=== PATIENT | male | born 1980 | race Caucasian/White ===

== ENCOUNTER 2020-10-06 06:50 | Inpatient (IN) | payer SELFPAY ==
[2020-10-06 08:10] LABS: Hemoglobin 11.9 g/dL (14.0-18.0); Mean Corpuscular HGB CONC 30.9 g/dL (32.0-36.0); Mean Corpuscular Volume 90.7 fL (78.0-98.0); Mean Platelet Volume 7.4 fL (7.4-10.4); Platelet Count 599 thou/uL (130-400); RBC Distribution Width 15.1 % (11.5-14.5); Red Blood Cell (RBC) Count 4.24 mill/uL (4.70-6.10); White Blood Cell (WBC) Count 22.3 thou/uL (4.8-10.8)
[2020-10-06 08:19] LABS: ALT (SGPT) 13 U/L (8-55); AST (SGOT) 21 U/L (5-34); Albumin 3.7 g/dL (3.5-5.0); Alkaline Phosphatase 72 U/L (40-110); Anion Gap 22 mmol/L (10-20); BUN (Urea Nitrogen) 68 mg/dL (8.9-20.6); Bilirubin, Total 0.3 mg/dL (0.2-1.2); Calc. Creatinine Clearance 0 mL/min (70-130); Calcium 8.7 mg/dL (7.8-10.44); Carbon Dioxide 11 mmol/L (22-29); Chloride 112 mmol/L (98-107); Potassium 6.3 mmol/L (3.5-5.1); Protein, Total 7.7 g/dL (6.0-8.3); Sodium 139 mmol/L (136-145)
[2020-10-06 08:21] LABS: Glucose 56 mg/dL (70-105)
[2020-10-06] MEDS ORDERED: Albuterol 200 PUFF (6.7GM INHALER) ONE (08:30)
[2020-10-06] MEDS ORDERED: cefTRIAXone\\ROCEPHIN 2 GM VIAL ONE (08:33)
[2020-10-06] MEDS ORDERED: Dextrose 50% Abboject 50 ML SYRINGE ONE ×2 (08:33→12:20)
[2020-10-06] MEDS ORDERED: Azithromycin 500 MG VIAL ONE (08:33)
[2020-10-06 08:41] LABS: Band 20 % (5-11); Eosinophils 1 % (0-10); Lymphocytes 1 % (21-51); MDiff Complete? YES; Metamyelocyte 1 % (0-0); Monocytes 4 % (0-10); Neutrophil 64 % (42-75); Platelet Morphology Comment Appears Adequate; Polychromasia SLIGHT = 2-3 cells (100X) (0-2/hpf); Reactive Lymphocytes 9 % (0-10)
[2020-10-06] MEDS ORDERED: Lidocaine 1% w/Epinephrine 1:100K 20 ML VIAL ONE (08:59)
[2020-10-06] MEDS ORDERED: Calcium Gluc 4.6 MEQ/10 ML (100 MG/ML) ONE ×2 (09:05→13:04)
[2020-10-06] MEDS ORDERED: Aspirin Chewable 81 MG TAB ONE (09:09)
[2020-10-06] MEDS ORDERED: Acetaminophen 325 MG TAB PO PRN (09:23)
[2020-10-06] MEDS ORDERED: Bisacodyl 5 MG TAB PO PRN (09:23)
[2020-10-06] MEDS ORDERED: Sodium Bicarbonate 150 MEQ in Dextrose 5% in Water 1,000 ML IV SCH (10:30)
--- NOTE | 2020-10-06 10:40 | CON ---
DATE OF CONSULTATION: SUBJECTIVE: Mr. Khan is a 40-year-old male from [place], morbidly obese. He lives with his father. He is on disability because of weakness in his legs. He weighs over 350 pounds. He does ambulate with a walker, can transfer, but is very weak, has limited mobility. He has a history of hypertension, sleep apnea, noninsulin-dependent diabetes mellitus. He has been transferred to this facility for a COVID illness. He has a white count of 22,000, hemoglobin 11. Sodium 139, potassium 6.3, GFR 7, glucose 56, lactic acid 0.8, troponin 0.034. The patient does not have any knowledge of preexisting kidney disease. I have been asked to see him regarding placement of a hemodialysis catheter. He is morbidly obese and ER is required to retract his pannus. ALLERGIES: NONE. SOCIAL HISTORY: Tobacco, none. Alcohol, none. MEDICATION LIST AT HOME: 1. Oral hypoglycemics. 2. CPAP. 3. Antihypertensives. List not reconciled. PAST SURGICAL HISTORY: Laparoscopic cholecystectomy; infection of left thigh, status post drainage. PAST MEDICAL HISTORY: Noninsulin-dependent diabetes mellitus, hypertension, sleep apnea, chronic venous stasis disease, chronic leg edema, metabolic syndrome, morbid obesity due to excess calories, acute probably on chronic renal failure. FAMILY HISTORY: Diabetes, heart disease in his family. REVIEW OF SYSTEMS: Otherwise noncontributory. PHYSICAL EXAMINATION: VITAL SIGNS: Blood pressure 120/78, respiratory rate 20, heart rate 88. HEAD, EARS, EYES, NOSE, AND THROAT: Unremarkable. LUNGS: Rhonchi at base. CARDIAC: Regular rate and rhythm. ABDOMEN: Morbidly obese, large, dependent pannus. EXTREMITIES: Chronic venous stasis disease, ankle edema, chronic venous stasis dermatitis. No obvious ulcerations. LABORATORY DATA: As noted above. ASSESSMENT/PLAN: 1. Hyperkalemia, acute on chronic renal failure. Plan, groin dialysis catheter, save veins for dialysis access as he may need this up the road. 2. Metabolic syndrome. 3. Morbid obesity, excess calories. 4. Mur-eaqwriu-fvikujunu diabetes mellitus. 5. Hypertension. 6. Sleep apnea. 7. Limited mobility because of some medical problem in the past that is unclear. Job ID: [id number]
[2020-10-06 11:20] LABS: Actual Bicarbonate (HCO3a) 11.2 mEq/L (22-28); Base Excess (BEa) -17.9 mEq/L (-2.0 to +3.0); CO2 Tension 38.3 mmHg (35.0-45.0); Calcium, Ionized (arterial) 1.25 mmol/L (1.12-1.30); Carboxyhemoglobin (COHb) 0.8 gm% (0.0-3.0); Hemoglobin (Hb) 11.9 g/dL (14.0-18.0); O2 Tension (PaO2), arterial 64.9 mmHg (80.0-100.0)
[2020-10-06 11:30] LABS: ALV-art Gradient 115.385 mmHg (0-20); Puncture Site RRA; pH, Arterial 7.08 (7.35-7.45)
--- NOTE | 2020-10-06 11:45 | OP ---
DATE OF PROCEDURE: 10/06/2020 PREOPERATIVE DIAGNOSES: Morbid obesity; metabolic syndrome; acute on chronic renal failure; hyperkalemia; large pannus, more than 350 pounds; mvt-tiydkqq-qbzymvoql diabetes mellitus; hypertension; sleep apnea; chronic venous stasis disease, in need of acute dialysis access. POSTOPERATIVE DIAGNOSES: Morbid obesity; metabolic syndrome; acute on chronic renal failure; hyperkalemia; large pannus, more than 350 pounds; spc-dtztauj-ytvivzofl diabetes mellitus; hypertension; sleep apnea; chronic venous stasis disease, in need of acute dialysis access. PROCEDURE PERFORMED: Failed attempt at right groin femoral vein dialysis catheter, successful left groin femoral vein dialysis catheter, Trialysis. ANESTHESIA: 1% Xylocaine. DESCRIPTION OF PROCEDURE: With the patient at bedside, right groin was prepared with ChloraPrep and draped in routine fashion. Local anesthetic was infiltrated in the skin and subcutaneous tissue. After multiple attempts at placement of right femoral vein catheter, it was finally abandoned. I could cannulate the catheter, but the J-wire would not thread. Left groin was then prepared with ChloraPrep and draped in routine fashion. Nurse ER retracted his large pannus cephalad. Groin prepared again with ChloraPrep. Local anesthetic was infiltrated in the skin and subcutaneous tissue. Femoral vein after multiple attempts was finally cannulated. J-wire threaded. Trocar, catheter removed. Seldinger technique used to place a Trialysis catheter using the medium and then intermediate dilators then placing in the catheter, securing the catheter with suture of 3-0 nylon. Sterile dressing applied. Each port aspirated of blood, flushed with heparinized saline solution. Patient tolerated the procedure well. Note, please avoid PICC lines and midlines and save his arms for future dialysis access as he most likely will need permanent dialysis access once he has recovered from his COVID illness. Job ID: [id number]
[2020-10-06] MEDS ORDERED: Dextrose 50% Abboject 50 ML SYRINGE SLOW IVP SCH (12:00)
[2020-10-06] MEDS ORDERED: Calcium Gluconate 4.6 MEQ in Sodium Chloride 0.9% 100 ML IVPB SCH (12:00)
[2020-10-06] MEDS ORDERED: Insulin Regular 300 UNITS/3 ML VIAL IVP SCH (12:00)
[2020-10-06] MEDS ORDERED: Albuterol Sulfate 2.5 mg/3 ml Neb NEB SCH (12:15)
[2020-10-06] MEDS ORDERED: Insulin Regular 300 UNITS/3 ML VIAL ONE (12:44)
--- NOTE | 2020-10-06 12:52 | CON ---
DATE OF CONSULTATION: 10/06/2020 SERVICE: Nephrology. REASON FOR CONSULTATION: Hyperkalemia and acute renal failure. HISTORY OF PRESENT ILLNESS: A 40-year-old morbidly obese male with known history of diabetes mellitus, hypertension, and obstructive sleep apnea on CPAP, admitted on transfer from [facility] for further treatment of COVID infection and respiratory failure with hypoxia. The patient reportedly presented due to worsening cough and shortness of breath and was found to have hyperkalemia and metabolic acidosis. The patient is not a known chronic kidney disease patient. Denied prior knowledge of kidney problems. He reported being on potassium supplementation as well as lisinopril. He denied nausea or vomiting, but admitted to recent development of loose stools. Of note, this patient is a poor historian. Also the medical record from the transferring hospital could not be traced at this point. PAST MEDICAL HISTORY: 1. Type 2 diabetes mellitus. 2. Hypertension. 3. Chronic leg edema. 4. Obstructive sleep apnea, on CPAP. 5. Morbid obesity. PAST SURGICAL HISTORY: Laparoscopic cholecystectomy. FAMILY HISTORY: Significant for hypertension, heart disease, and chronic kidney disease. The patient reported that mother had CKD requiring hemodialysis prior to her . SOCIAL HISTORY: Lives alone. Denied alcohol or recreational drug use or tobacco. ALLERGIES: NONE. PRIOR TO HOSPITAL MEDICATIONS: The patient was able to tell me he is on the following medications: 1. Metformin. 2. Lisinopril. 3. Potassium. 4. Lasix, but was unable to tell me the doses. REVIEW OF SYSTEMS: A 12-point review of system performed was negative other than pertinent positives and negatives included in the history of present illness. PHYSICAL EXAMINATION: VITAL SIGNS: Blood pressure 126/74, pulse 92, respiratory rate 22, SpO2 of 93% on 3 L nasal cannula, temperature is 98.1. On presentation to the hospital, however, initial blood pressure was 92/37 with pulse of 84. However, the low blood pressure may be related to use of inappropriate cough. GENERAL: Morbidly obese male, in some respiratory distress. Afebrile. Anicteric. Acyanotic. HEENT: Normocephalic, atraumatic. Oral mucosa is moist. NECK: Supple, symmetrical with no obvious JVD. CARDIOVASCULAR: Regular rhythm and rate with normal heart sounds 1 and 2. RESPIRATORY: Fair air entry bilaterally with some transmitted breath sounds. No rhonchi were appreciated. Work of breathing is mildly increased. GI: Morbidly obese with massive pannus. Nontender with normal bowel sounds. EXTREMITIES: Chronic right lower extremity edema with chronic venous stasis changes as well as lymphedematous changes noted. No obvious erythema was appreciated. Other extremities are grossly normal, atraumatic with no edema. HYDROPONICS GROWER: Conscious, alert and oriented x3 with appropriate mental status. Cranial nerves 2 through 12 are grossly intact. The patient moves all extremities. DIAGNOSTIC DATA: CBC performed here showed WBC count of 22.3, hemoglobin of 11.9, MCV of 90.7, and platelet of 599. Blood gas performed here showed pH of 7.08, pCO2 of 38.3, pO2 of 64.9, ionized calcium of 1.25. CMP showed sodium 139, potassium 6.3, chloride 112, CO2 of 11, BUN 68, creatinine 8.81, glucose 56, calcium 8.7, magnesium 2.0, total bilirubin was 0.3, AST 21, ALT 13, alkaline phosphatase 72, total protein 7.7, albumin 3.7. Initial cardiac markers showed CK-MB of 5.0 and troponin of 0.034. Initial lactic acid is 0.8. Of note, baseline numbers are unknown and lab from the transferring physician is not available at this point. EKG showed normal sinus rhythm with no ectopics or ST or T-wave changes. ASSESSMENT: 1. Acute renal failure: Most likely due to hemodynamic factors related to volume depletion from poor intake and increased losses related to diuretic and diarrhea as well as effect of RAAS karina and cytokine mediated injury related to sepsis and coronavirus pneumonia. 2. Hyperkalemia: Due to acute kidney injury as well as use of lisinopril and potassium supplementation as well as marked metabolic acidosis. 3. Severe metabolic acidosis with pH of 7.08: Due to acute renal failure. 4. Sepsis due to coronavirus disease infection. 5. Morbid obesity. 6. Obstructive sleep apnea, on CPAP. 7. Hypertension: The patient's blood pressures is well controlled. Initially was soft actually which has improved at this time. PLAN: 1. We will treat hyperkalemia medically with insulin/dextrose as well as albuterol, Kayexalate and calcium gluconate and sodium bicarbonate infusion. We will recheck BMP at 15 hours and if potassium is still elevated, we will then proceed with hemodialysis. 2. We will get urine electrolytes. 3. We will also get renal ultrasound to rule out obstructive uropathy. 4. We will optimize hemodynamics and avoid hypertension. Further treatment to follow depending on hospital course. General Surgery consult has been requested and the patient currently have a Trialysis catheter in case hemodialysis will be indicated. 5. Many times for involving us in the care of this patient. We will follow along with you. The patient is critically ill with guarded prognosis. Critical care time was 38 minutes. Job ID: [id number] MTDD
--- NOTE | 2020-10-06 13:59 | PDOC.HHP ---
Hospitalist HPI - History of Present Illness Generalized weakness History of Present Illness: Patient is a pleasant 34-year-old gentleman who was seen in the emergency room following transfer from emergency room in [place]. He reports having generalized weakness for 1 week. He also reports worsening shortness of breath and cough. Reports diarrhea. He denies fevers or chills. He denies nausea or vomiting. In the emergency room at [place], he was found to have hyperkalemia, acute kidney injury and a positive COVID-19 test. He was subsequently transferred to our facility for further management. ED Course: BP: 92/37, MAP: 55, Pulse: 84, Resp: 20, Temp: 97.4 (Oral), O2 sat: 92 on (3L Oxygen), Time: 10/06/2020 07:07. Hospitalist ROS - Review of Systems Constitutional: reports: weakness, malaise. denies: fever, chills, sweats Respiratory: reports: cough, dry, shortness of breath Cardiovascular: denies: chest pain, palpitations, orthopnea, paroxysmal noc. dyspnea, edema, light headedness Gastrointestinal: reports: diarrhea. denies: nausea, vomiting, abdominal pain, constipation, melena, hematochezia Genitourinary: denies: dysuria, frequency, incontinence, hematuria, retention All other systems reviewed; all pertinent +/- noted in HPI/Subj - Medication Medications: Active Medications Generic Name Dose Route Start Last Admin Trade Name Freq PRN Reason Stop Dose Admin Albuterol Sulfate 5 mg 10/06/20 12:15 10/06/20 13:26 Albuterol Sulfate 2.5 Mg/3 Ml Neb NEB 10/06/20 14:15 Not Given NOW JERRY Dextrose/Water 25 gm 10/06/20 12:00 10/06/20 12:44 Dextrose 50% Abboject 50 Ml Syringe SLOW IVP 10/06/20 14:00 25 gm NOW JERRY Administration Calcium Gluconate 4.6 meq/ 110 mls @ 200 mls/hr 10/06/20 12:00 10/06/20 13:14 Sodium Chloride IVPB 10/06/20 14:00 110 mls NOW JERRY Administration Insulin Human Regular 10 units 10/06/20 12:00 10/06/20 12:57 Insulin Regular 300 Units/3 Ml Vial IVP 10/06/20 14:00 10 unit NOW JERRY Administration Sodium Polystyrene Sulfonate 30 gm 10/06/20 12:00 10/06/20 12:45 Sodium Polystyrene Sulfonate 15 Gm/60 Ml Bot PO 10/06/20 14:00 30 gm NOW JERRY Administration Allergies: No known drug allergies. Current medications: These need to be clarified, but appears to include Metformin, lisinopril, potassium and furosemide. Hospitalist History - Past Medical History Other Medical History: Past medical history: Significant for diabetes mellitus type 2, hypertension, chronic lower extremity edema, obstructive sleep apnea syndrome on CPAP therapy and morbid obesity. Surgical history: Laparoscopic cholecystectomy Family history: Significant for hypertension, heart disease and chronic kidney disease. Social history: Patient denies tobacco use, alcohol use or recreational drug use. - Exam General - other findings: Morbid obesity Eye: anicteric sclera ENT: normocephalic atraumatic, no oropharyngeal lesions Neck: supple, symmetric, no thyromegaly, no lymphadenopathy Heart: RRR, no gallops, no rubs, normal peripheral pulses Respiratory: CTAB, no wheezes, no rales, no ronchi Gastrointestinal: soft, non-tender, normal bowel sounds, distended Skin: no rashes Psychiatric: normal affect, normal behavior, A&O x 3 Hospitalist Results - Labs Result Diagrams: 10/06/20 07:48 10/06/20 07:48 Lab results: WBC 22.3 thou/uL (4.8-10.8) H 10/06/20 07:48 Hgb 11.9 g/dL (14.0-18.0) L 10/06/20 07:48 Hct 38.4 % (42.0-52.0) L 10/06/20 07:48 MCV 90.7 fL (78.0-98.0) 10/06/20 07:48 Plt Count 599 thou/uL (130-400) H 10/06/20 07:48 Band Neuts % (Manual) 20 % (5-11) H 10/06/20 07:48 ABG pH 7.08 (7.35-7.45) L* 10/06/20 11:15 ABG pCO2 38.3 mmHg (35.0-45.0) 10/06/20 11:15 ABG pO2 64.9 mmHg (80.0-100.0) L 10/06/20 11:15 Sodium 139 mmol/L (136-145) 10/06/20 07:48 Potassium 6.3 mmol/L (3.5-5.1) H 10/06/20 07:48 Chloride 112 mmol/L (98-107) H 10/06/20 07:48 Carbon Dioxide 11 mmol/L (22-29) L 10/06/20 07:48 BUN 68 mg/dL (8.9-20.6) H 10/06/20 07:48 Creatinine 8.81 mg/dL (0.7-1.3) H 10/06/20 07:48 Glucose 56 mg/dL (70-105) L* 10/06/20 07:48 Lactic Acid 0.8 mmol/L (0.5-2.2) 10/06/20 07:48 Calcium 8.7 mg/dL (7.8-10.44) 10/06/20 07:48 Total Bilirubin 0.3 mg/dL (0.2-1.2) 10/06/20 07:48 AST 21 U/L (5-34) 10/06/20 07:48 ALT 13 U/L (8-55) 10/06/20 07:48 Alkaline Phosphatase 72 U/L (40-110) 10/06/20 07:48 CK-MB (CK-2) 5.0 ng/mL (0-6.6) 10/06/20 07:48 Troponin I 0.030 ng/mL (< 0.028) H 10/06/20 10:58 Serum Total Protein 7.7 g/dL (6.0-8.3) 10/06/20 07:48 Albumin 3.7 g/dL (3.5-5.0) 10/06/20 07:48 - EKG Interpretation EKG: EKG by my review shows normal sinus rhythm, no ST changes to suggest an acute coronary syndrome. - Radiology Interpretation Chest x-ray Additional Comment: Chest x-ray by my review shows multifocal pneumonia. Hospitalist H&P A/P - Problem (1) Acute kidney injury Code(s): N17.9 - ACUTE KIDNEY FAILURE, UNSPECIFIED Status: Acute (2) Metabolic acidosis Code(s): E87.2 - ACIDOSIS Status: Acute (3) Hyperkalemia Code(s): E87.5 - HYPERKALEMIA Status: Acute (4) Hypotension Status: Acute (5) Diabetes mellitus, type II Status: Chronic - Plan Plan: General surgery service consulted for dialysis catheter. Bicarbonate drip. Empiric antibiotics, ceftriaxone and azithromycin. Emergent dialysis for acute kidney injury and hyperkalemia Vasopressors if needed. Check urine studies and blood culture. Dexamethasone hypoxia as documented. Vitamin C, vitamin D and zinc. Many thanks for allowing me to participate in your patient's care. Please feel free to contact me with any questions or concerns. Level of risk: High Level of complexity: High Estimated length of stay in the hospital: Greater than 2 midnights. Primary CARE provider: Dr. Varghese Rivas
[2020-10-06] MEDS ORDERED: Dextrose 5% in Water 1,000 ML IV PRN (14:13)
[2020-10-06] MEDS ORDERED: Dextrose 50% Abboject 50 ML SYRINGE SLOW IVP PRN (14:13)
[2020-10-06] MEDS ORDERED: Zinc Sulfate 220 MG CAP PO SCH (14:15)
[2020-10-06] MEDS ORDERED: Ascorbic Acid 500 mg Chewable Tablet PO SCH (14:15)
[2020-10-06 14:17] LABS: Anion Gap 23 mmol/L (10-20); BUN (Urea Nitrogen) 67 mg/dL (8.9-20.6); Calc. Creatinine Clearance 0 mL/min (70-130); Calcium 8.7 mg/dL (7.8-10.44); Carbon Dioxide 10 mmol/L (22-29); Chloride 110 mmol/L (98-107); Glucose 245 mg/dL (70-105); Potassium 6.2 mmol/L (3.5-5.1); Sodium 137 mmol/L (136-145); Troponin I 0.027 ng/mL (< 0.028)
[2020-10-06] MEDS ORDERED: Dexamethasone 10 MG/ML VIAL ONE (15:20)
[2020-10-06] MEDS ORDERED: Heparin 10,000 UNITS/ 10 ML VIAL ONE (15:20)
[2020-10-06] MEDS: Dexamethasone 4 mg/ml Vial SLOW IVP SCH (15:35)
--- NOTE | 2020-10-06 16:33 | ULT ---
EXAM: BILATERAL RENAL ULTRASOUND COMPLETE: 10/06/20 HISTORY: Acute kidney injury. FINDINGS: Right kidney measures 10.2 x 5.6 x 5.9 cm. Left kidney measures 12.0 x 5 x 4.8 cm. Exam is very severely limited because of body habitus. No evidence for renal hydronephrosis. Urinary bladder appears unremarkable. IMPRESSION: Severely limited study because of body habits. No overt hydronephrosis. POS: OFF
--- NOTE | 2020-10-06 17:55 | CON ---
DATE OF CONSULTATION: 10/06/2020 HISTORY OF PRESENT ILLNESS: Shaan Khan is a 40-year-old male. I am told he is home bound. He was transferred from [place], [place] to here for weakness. He also had some complaints of shortness of breath. PAST MEDICAL HISTORY: Remarkable for: 1. Diabetes. 2. Hypertension. 3. Chronic venous stasis. 4. Sleep apnea. 5. Morbid obesity. 6. History of cholecystectomy. 7. Hypertension. FAMILY HISTORY: Positive for vascular disease. No history of lung disease in early age. SOCIAL HISTORY: He is a nonsmoker and nondrinker. REVIEW OF SYSTEMS: Otherwise negative. PHYSICAL EXAMINATION: VITAL SIGNS: Blood pressure is in 110 range systolic, heart rates in the 80s, and respiratory rates in the teens. GENERAL: He is lying on his right side, in no distress. He has nasal cannula oxygen, saturations are in the mid 90s. HEAD AND NECK: Remarkable for just a very large neck. LUNGS: Remarkable for distant breath sounds. HEART: Regular rhythm. ABDOMEN: Massive. EXTREMITIES: With stasis changes. LABORATORY DATA: White count 22, hemoglobin 11, platelets 599, and 20% bands. Sodium 137, potassium 6.3, chloride 110, bicarb 10, BUN 67, and creatinine 8.7. A pH reportedly was 7.08 with a CO2 of 38 and PO2 of 64. Dialysis catheter has been placed emergently. He is awaiting dialysis. IMPRESSION: Renal failure? Acute on chronic. He needs dialysis. He is in no distress at this point in time. He appears comfortable. I am told Nephrology has been consulted. Dialysis will likely fix his pH and his potassium issues. He has a positive COVID screen we were told, but that is not the test that was done here, so I am not sure the accuracy of the test at the outside emergency room. This probably should be repeated. TIME SPENT: 70-minute consult, 50% of the time was spent on the unit coordinating care. Job ID: [id number] [facility]
[2020-10-06] MEDS: Heparin 5,000 UNITS/ML VIAL SC SCH ×2 (20:00→22:00)
[2020-10-06 20:11] LABS: Anion Gap 23 mmol/L (10-20); BUN (Urea Nitrogen) 73 mg/dL (8.9-20.6); Calc. Creatinine Clearance 0 mL/min (70-130); Calcium 8.5 mg/dL (7.8-10.44); Carbon Dioxide 13 mmol/L (22-29); Chloride 110 mmol/L (98-107); Glucose 229 mg/dL (70-105); Potassium 5.4 mmol/L (3.5-5.1); Sodium 141 mmol/L (136-145)
[2020-10-06 20:53] LABS: Bilirubin Negative (Negative); Blood, Urine 1+ (Negative); Clarity Turbid (Clear); Glucose, Urine (Dipstick) Normal (Negative); Ketone, Urine Negative (Negative); Leukocyte Negative Leu/uL (Negative); Nitrite Negative (Negative); Protein, Urine (Dipstick) 100 mg/dL (Neg-Trace); Specific Gravity, Urine 1.018 (1.002-1.036); Urobilinogen Normal mg/dL (Less than 2); pH, Urine 5.5 (5.0-9.0)
[2020-10-06 20:57] LABS: Bacteria/HPF 1+ HPF (None Seen)
[2020-10-06 21:01] LABS: WBC/HPF 0-3 HPF (0-3)
[2020-10-06 21:02] LABS: Renal Epithelial 0-3 HPF (None Seen); Squamous Epithelial 0-3 HPF (0-3); Transitional Epithelial 0-3 HPF (None Seen)
[2020-10-06 21:05] LABS: Urine Culture Reflex Yes Yes
[2020-10-06 21:10] LABS: Creatinine, Urine 386.98 mg/dL (63-166)
[2020-10-06 23:57] VITALS: BMI 56.3
[2020-10-07 04:29] LABS: Anion Gap 20 mmol/L (10-20); BUN (Urea Nitrogen) 76 mg/dL (8.9-20.6); Calc. Creatinine Clearance 31 mL/min (70-130); Calcium 8.3 mg/dL (7.8-10.44); Carbon Dioxide 16 mmol/L (22-29); Chloride 109 mmol/L (98-107); Glucose 163 mg/dL (70-105); Potassium 4.6 mmol/L (3.5-5.1); Sodium 140 mmol/L (136-145)
[2020-10-07 05:23] LABS: Band 23 % (5-11); Lymphocytes 16 % (21-51); MDiff Complete? YES; Mean Corpuscular HGB CONC 30.5 g/dL (32.0-36.0); Mean Corpuscular Hemoglobin 27.2 pg (27.0-31.0); Mean Corpuscular Volume 89.2 fL (78.0-98.0); Mean Platelet Volume 7.5 fL (7.4-10.4); Metamyelocyte 1 % (0-0); Monocytes 3 % (0-10); Neutrophil 56 % (42-75); Nucleated RBC 1 % (0); Platelet Count 554 thou/uL (130-400); RBC Distribution Width 15.1 % (11.5-14.5); Reactive Lymphocytes 1 % (0-10); Red Blood Cell (RBC) Count 3.68 mill/uL (4.70-6.10); White Blood Cell (WBC) Count 16.8 thou/uL (4.8-10.8)
[2020-10-07] MEDS: cefTRIAXone\\ROCEPHIN 1 GM in Sodium Chloride 0.9% 100 ML IVPB SCH (10:18)
[2020-10-07] MEDS: Heparin 5,000 UNITS/ML VIAL SC SCH ×3 (10:19→21:16)
[2020-10-07] MEDS: Ascorbic Acid 500 mg Chewable Tablet PO SCH (10:19)
[2020-10-07] MEDS: Zinc Sulfate 220 MG CAP PO SCH (10:19)
[2020-10-07] MEDS: Azithromycin 500 MG in Sodium Chloride 0.9% 250 ML 250 ML IVPB SCH (10:19)
--- NOTE | 2020-10-07 10:31 | PDOC.NEPPN ---
- Subjective Encounter Date: 10/07/20 Subjective: Feeling better. making good urine now. SOB is better. Frequent loose stool have subsided. - Objective Vital Signs & Weight: Vital Signs (12 hours) Temp Pulse Resp BP Pulse Ox 10/07/20 08:00 98.7 F 94 L 10/07/20 04:00 97.3 F L 81 22 H 101/50 L 92 L 10/07/20 00:50 97.4 F L Weight Weight 360 lb Most Recent Monitor Data Heart Rate from ECG 88 NIBP 139/72 NIBP BP-Mean 94 Respiration from ECG 14 SpO2 83 I&O: 10/06/20 10/07/20 10/08/20 06:59 06:59 06:59 Intake Total 500 Output Total 1200 Balance -700 Result Diagrams: 10/07/20 03:10 10/07/20 03:10 Additional Labs: Accuchecks 10/06/20 10/06/20 20:18 12:29 POC Glucose 191 H 169 H Nephrology ROS - Medication Medications: Active Medications Generic Name Dose Route Start Last Admin Trade Name Kamila PRN Reason Stop Dose Admin Ascorbic Acid 1,000 mg 10/07/20 09:00 10/07/20 10:19 Ascorbic Acid 500 Mg Chewable Tablet PO 1,000 mg DAILY JERRY Administration Dexamethasone 6 mg 10/06/20 15:00 10/06/20 15:35 Dexamethasone 4 Mg/Ml Vial SLOW IVP 6 mg Q24HR JERRY Administration Heparin Sodium (Porcine) 5,000 units 10/06/20 15:00 10/07/20 10:19 Heparin 5,000 Units/Ml Vial SC 5,000 units TID JERRY Administration Sodium Bicarbonate 150 meq/ 1,150 mls @ 100 mls/hr 10/06/20 10:30 10/06/20 16:34 Dextrose/Water IV 1,150 mls INF JERRY Administration Ceftriaxone Sodium 1 gm/ 100 mls @ 200 mls/hr 10/07/20 09:00 10/07/20 10:18 Sodium Chloride IVPB 100 mls 0900 JERRY Administration Azithromycin 500 mg/ Sodium 250 mls @ 250 mls/hr 10/07/20 10:00 10/07/20 10:19 Chloride IVPB 250 mls 1000 JERRY Administration Zinc Sulfate 220 mg 10/07/20 09:00 10/07/20 10:19 Zinc Sulfate 220 Mg Cap PO 220 mg DAILY JERRY Administration - Exam General Appearance: awake alert General - other findings: morbidly obese Eye: anicteric sclera ENT: normocephalic atraumatic, moist mucosa Neck: symmetric, no JVD Respiratory - other findings: fair air entry with some transmitted sound Cardiovascular: RRR Gastrointestinal - other findings: morbidly obese with a pannus. Extremities: no edema Neurological: CN's grossly intact PSYCH: A&O x 3 Nephrology Results - Labs Result Diagrams: 10/07/20 03:10 10/07/20 03:10 Lab results: WBC 16.8 thou/uL (4.8-10.8) H 10/07/20 03:10 Hgb 10.0 g/dL (14.0-18.0) L 10/07/20 03:10 Hct 32.8 % (42.0-52.0) L 10/07/20 03:10 MCV 89.2 fL (78.0-98.0) 10/07/20 03:10 Plt Count 554 thou/uL (130-400) H 10/07/20 03:10 Band Neuts % (Manual) 23 % (5-11) H 10/07/20 03:10 ABG pH 7.08 (7.35-7.45) L* 10/06/20 11:15 ABG pCO2 38.3 mmHg (35.0-45.0) 10/06/20 11:15 ABG pO2 64.9 mmHg (80.0-100.0) L 10/06/20 11:15 Sodium 140 mmol/L (136-145) 10/07/20 03:10 Potassium 4.6 mmol/L (3.5-5.1) 10/07/20 03:10 Chloride 109 mmol/L (98-107) H 10/07/20 03:10 Carbon Dioxide 16 mmol/L (22-29) L 10/07/20 03:10 BUN 76 mg/dL (8.9-20.6) H 10/07/20 03:10 Creatinine 7.46 mg/dL (0.7-1.3) H 10/07/20 03:10 Glucose 163 mg/dL (70-105) H 10/07/20 03:10 Lactic Acid 0.8 mmol/L (0.5-2.2) 10/06/20 07:48 Calcium 8.3 mg/dL (7.8-10.44) 10/07/20 03:10 Total Bilirubin 0.3 mg/dL (0.2-1.2) 10/06/20 07:48 AST 21 U/L (5-34) 10/06/20 07:48 ALT 13 U/L (8-55) 10/06/20 07:48 Alkaline Phosphatase 72 U/L (40-110) 10/06/20 07:48 CK-MB (CK-2) 5.0 ng/mL (0-6.6) 10/06/20 07:48 Troponin I 0.027 ng/mL (< 0.028) 10/06/20 13:31 Serum Total Protein 7.7 g/dL (6.0-8.3) 10/06/20 07:48 Albumin 3.7 g/dL (3.5-5.0) 10/06/20 07:48 Urine Ketones Negative mg/dL (Negative) 10/06/20 20:20 Urine Blood 1+ (Negative) A 10/06/20 20:20 Urine Nitrite Negative (Negative) 10/06/20 20:20 Ur Leukocyte Esterase Negative Barbra/uL (Negative) 10/06/20 20:20 Urine RBC 4-6 HPF (0-3) A 10/06/20 20:20 Urine WBC 0-3 HPF (0-3) 10/06/20 20:20 Ur Squamous Epith Cells 0-3 HPF (0-3) 10/06/20 20:20 Urine Bacteria 1+ HPF (None Seen) A 10/06/20 20:20 Sodium 140 mmol/L (136-145) 10/07/20 03:10 Potassium 4.6 mmol/L (3.5-5.1) 10/07/20 03:10 Chloride 109 mmol/L (98-107) H 10/07/20 03:10 Carbon Dioxide 16 mmol/L (22-29) L 10/07/20 03:10 Anion Gap 20 mmol/L (10-20) 10/07/20 03:10 BUN 76 mg/dL (8.9-20.6) H 10/07/20 03:10 Creatinine 7.46 mg/dL (0.7-1.3) H 10/07/20 03:10 Glucose 163 mg/dL (70-105) H 10/07/20 03:10 Calcium 8.3 mg/dL (7.8-10.44) 10/07/20 03:10 Magnesium 2.0 mg/dL (1.6-2.6) 10/06/20 07:48 Albumin 3.7 g/dL (3.5-5.0) 10/06/20 07:48 Nephrology AP PN - Plan ASSESSMENT: Acute renal failure: Most likely due to hemodynamic factors related to volume depletion from poor intake and increased losses related to diuretic and diarrhea as well as effect of RAAS karina and cytokine mediated injury related to sepsis and coronavirus pneumonia. Hyperkalemia: Due to acute kidney injury as well as use of lisinopril and potassium supplementation as well as marked metabolic acidosis. Resolved. Severe metabolic acidosis: Due to acute renal failure and diarrhea. Improving Sepsis due to coronavirus disease infection. Morbid obesity. Obstructive sleep apnea, on CPAP. Hypertension: The patient's blood pressures is well controlled. Initially was soft actually which has improved at this time. PLAN Continue sodium bicarbonate infusion. Increase rate to 125 cc/hr Monitor intake and output as well as electrolytes and renal function. Avoid nephrotixic agents Hold antihypertensives
--- NOTE | 2020-10-07 14:27 | PRG ---
DATE OF SERVICE: 10/07/2020 SUBJECTIVE: The patient is doing okay. He is afebrile with a pulse of 89, blood pressure 117/76, and O2 saturation that is generally running in the 90s when he keeps his oxygen on. OBJECTIVE: HEENT: Unremarkable. NECK: No JVD. LUNGS: Inspiratory crackles. CARDIAC: S1 and S2 regular. ABDOMEN: Soft, obese. EXTREMITIES: Edematous. LABORATORY DATA: Sodium 140, potassium 4.6, chloride 109, CO2 16, BUN 76, creatinine 7.4, glucose 163. White blood cell count 16.8, hematocrit 32.8, platelet count 554. ASSESSMENT: 1. Severe metabolic acidosis secondary to renal failure. 2. Positive coronavirus disease without any respiratory distress. PLAN: Patient is on a bicarbonate drip per Nephrology. He is on empiric antibiotics and steroids. He seems to be doing well. We will continue to follow. Job ID: [id number]
[2020-10-07] MEDS: Dexamethasone 4 mg/ml Vial SLOW IVP SCH (16:11)
[2020-10-07 17:33] LABS: SARS-CoV-2 MS2 Positive; SARS-CoV-2 N Gene Positive; SARS-CoV-2 S Gene Positive; SARS-CoV-2 by NAA DETECTED (NotDetected); SARS-CoV-2 orf1ab Positive
--- NOTE | 2020-10-07 20:05 | PDOC.HOSPP ---
- Subjective Encounter Date: 10/07/20 Encounter Time: 15:30 Subjective: Patient seen for follow-up for acute renal failure. Denies chest pain. Reports cough and generalized weakness. - Objective Vital Signs & Weight: Vital Signs (12 hours) Temp Pulse Ox 10/07/20 19:38 95 10/07/20 19:08 97.6 F 10/07/20 16:00 98.2 F Weight Weight 360 lb Most Recent Monitor Data Heart Rate from ECG 91 NIBP 121/72 NIBP BP-Mean 88 Respiration from ECG 16 SpO2 92 I&O: 10/06/20 10/07/20 10/08/20 06:59 06:59 06:59 Intake Total 500 1150 Output Total 1200 2150 Balance -700 -1000 Result Diagrams: 10/07/20 03:10 10/07/20 03:10 Additional Labs: Accuchecks 10/06/20 20:18 POC Glucose 191 H I reviewed patient's labs and MAR Hospitalist ROS - Review of Systems Constitutional: reports: weakness Respiratory: reports: cough, dry. denies: shortness of breath, hemoptysis, SOB with excertion, pleuritic pain, sputum, wheezing Cardiovascular: denies: chest pain, palpitations, orthopnea, paroxysmal noc. dyspnea, edema, light headedness - Medication Medications: Active Medications Generic Name Dose Route Start Last Admin Trade Name Stuartq PRN Reason Stop Dose Admin Ascorbic Acid 1,000 mg 10/07/20 09:00 10/07/20 10:19 Ascorbic Acid 500 Mg Chewable Tablet PO 1,000 mg DAILY JERRY Administration Dexamethasone 6 mg 10/06/20 15:00 10/07/20 16:11 Dexamethasone 4 Mg/Ml Vial SLOW IVP 6 mg Q24HR JERRY Administration Heparin Sodium (Porcine) 5,000 units 10/06/20 15:00 10/07/20 16:11 Heparin 5,000 Units/Ml Vial SC 5,000 units TID JERRY Administration Ceftriaxone Sodium 1 gm/ 100 mls @ 200 mls/hr 10/07/20 09:00 10/07/20 10:18 Sodium Chloride IVPB 100 mls 0900 JERRY Administration Azithromycin 500 mg/ Sodium 250 mls @ 250 mls/hr 10/07/20 10:00 10/07/20 10:19 Chloride IVPB 250 mls 1000 JERRY Administration Zinc Sulfate 220 mg 10/07/20 09:00 10/07/20 10:19 Zinc Sulfate 220 Mg Cap PO 220 mg DAILY JERRY Administration - Exam General - other findings: Morbid obesity ENT: moist mucosa Neck: supple Heart: RRR Respiratory: rhonchi Gastrointestinal: soft, non-tender, distended Skin: no rashes Psychiatric: normal affect Hosp A/P (1) Acute kidney injury Code(s): N17.9 - ACUTE KIDNEY FAILURE, UNSPECIFIED Status: Acute (2) Metabolic acidosis Code(s): E87.2 - ACIDOSIS Status: Acute (3) Hypotension Status: Acute (4) Diabetes mellitus, type II Status: Chronic (5) Hyperkalemia Code(s): E87.5 - HYPERKALEMIA Status: Resolved - Plan - Plan General surgery service consulted for dialysis catheter. Bicarbonate drip. Continue ceftriaxone and azithromycin. Hyperkalemia has resolved, creatinine has improved. Continue dexamethasone. Vitamin C, vitamin D and zinc.
[2020-10-07] MEDS: HumaLOG 300 UNITS/3 ML VIAL SC PRN (21:27)
[2020-10-07] MEDS: Sodium Bicarbonate 150 MEQ in Dextrose 5% in Water 1,000 ML IV SCH (23:48)
[2020-10-08 04:18] LABS: Band 11 % (5-11); Hemoglobin 9.8 g/dL (14.0-18.0); Hypochromia SLIGHT = 6-15 cells (100X) (0-5/hpf); Lymphocytes 10 % (21-51); MDiff Complete? YES; Mean Corpuscular HGB CONC 31.8 g/dL (32.0-36.0); Mean Corpuscular Volume 88.1 fL (78.0-98.0); Mean Platelet Volume 7.5 fL (7.4-10.4); Metamyelocyte 4 % (0-0); Monocytes 3 % (0-10); Neutrophil 70 % (42-75); Platelet Count 537 thou/uL (130-400); Platelet Morphology Comment Appears Increased; RBC Distribution Width 14.6 % (11.5-14.5); Reactive Lymphocytes 2 % (0-10); Red Blood Cell (RBC) Count 3.49 mill/uL (4.70-6.10); Toxic Granulation SLIGHT; White Blood Cell (WBC) Count 13.4 thou/uL (4.8-10.8)
[2020-10-08 04:20] LABS: Anion Gap 16 mmol/L (10-20); BUN (Urea Nitrogen) 57 mg/dL (8.9-20.6); Calc. Creatinine Clearance 75 mL/min (70-130); Calcium 8.4 mg/dL (7.8-10.44); Carbon Dioxide 23 mmol/L (22-29); Chloride 105 mmol/L (98-107); Glucose 344 mg/dL (70-105); Potassium 4.5 mmol/L (3.5-5.1); Sodium 139 mmol/L (136-145)
[2020-10-08] MEDS: HumaLOG 300 UNITS/3 ML VIAL SC PRN ×4 (05:42→20:48)
[2020-10-08] MEDS: Ascorbic Acid 500 mg Chewable Tablet PO SCH (07:49)
[2020-10-08] MEDS: cefTRIAXone\\ROCEPHIN 1 GM in Sodium Chloride 0.9% 100 ML IVPB SCH (07:50)
[2020-10-08] MEDS: Heparin 5,000 UNITS/ML VIAL SC SCH ×3 (07:50→20:25)
[2020-10-08] MEDS: Zinc Sulfate 220 MG CAP PO SCH (07:50)
[2020-10-08] MEDS: Sodium Bicarbonate 150 MEQ in Dextrose 5% in Water 1,000 ML IV SCH ×2 (09:15→17:32)
[2020-10-08] MEDS: Azithromycin 500 MG in Sodium Chloride 0.9% 250 ML 250 ML IVPB SCH (09:16)
--- NOTE | 2020-10-08 10:28 | PDOC.NEPPN ---
- Subjective Encounter Date: 10/08/20 Subjective: Feeling better. Oral intake and urine output have improved greatly. Still on oxygen. - Objective Vital Signs & Weight: Vital Signs (12 hours) Temp Pulse Ox 10/08/20 04:00 98.3 F 10/08/20 00:00 98.6 F 93 L Weight Weight 360 lb Most Recent Monitor Data Heart Rate from ECG 46 NIBP 106/84 NIBP BP-Mean 91 Respiration from ECG 16 SpO2 94 I&O: 10/07/20 10/08/20 10/09/20 06:59 06:59 06:59 Intake Total 500 4175 Output Total 1200 4850 Balance -700 -675 Result Diagrams: 10/08/20 03:35 10/08/20 03:35 Additional Labs: Accuchecks 10/08/20 05:34 POC Glucose 302 H Nephrology ROS - Medication Medications: Active Medications Generic Name Dose Route Start Last Admin Trade Name Freq PRN Reason Stop Dose Admin Ascorbic Acid 1,000 mg 10/07/20 09:00 10/08/20 07:49 Ascorbic Acid 500 Mg Chewable Tablet PO 1,000 mg DAILY JERRY Administration Dexamethasone 6 mg 10/06/20 15:00 10/07/20 16:11 Dexamethasone 4 Mg/Ml Vial SLOW IVP 6 mg Q24HR JERRY Administration Heparin Sodium (Porcine) 5,000 units 10/06/20 15:00 10/08/20 07:50 Heparin 5,000 Units/Ml Vial SC 5,000 units TID JERRY Administration Ceftriaxone Sodium 1 gm/ 100 mls @ 200 mls/hr 10/07/20 09:00 10/08/20 07:50 Sodium Chloride IVPB 100 mls 0900 JERRY Administration Azithromycin 500 mg/ Sodium 250 mls @ 250 mls/hr 10/07/20 10:00 10/08/20 09:16 Chloride IVPB 250 mls 1000 JERRY Administration Sodium Bicarbonate 150 meq/ 1,150 mls @ 125 mls/hr 10/07/20 10:35 10/08/20 09:15 Dextrose/Water IV 1,150 mls INF JERRY Administration Insulin Human Lispro 0 units 10/06/20 14:13 10/08/20 05:42 Humalog 300 Units/3 Ml Vial SC 5 unit .MILD SLIDING SCALE PRN Administration Mild Correctional Scale Zinc Sulfate 220 mg 10/07/20 09:00 10/08/20 07:50 Zinc Sulfate 220 Mg Cap PO 220 mg DAILY JERRY Administration - Exam General Appearance: awake alert General - other findings: morbidly obese Eye: anicteric sclera ENT: normocephalic atraumatic, moist mucosa Neck: symmetric, no JVD Respiratory: no ronchi, normal chest expansion, no tachypnea Respiratory - other findings: fair air entry bilaterally with some transmitted sound Cardiovascular: RRR Gastrointestinal: soft, normal bowel sounds Gastrointestinal - other findings: morbidly obese with pannus Extremities - other findings: Leg lymphedema and mild edema noted Neurological: CN's grossly intact, no focal deficits PSYCH: A&O x 3 Nephrology Results - Labs Result Diagrams: 10/08/20 03:35 10/08/20 03:35 Lab results: WBC 13.4 thou/uL (4.8-10.8) H 10/08/20 03:35 Hgb 9.8 g/dL (14.0-18.0) L 10/08/20 03:35 Hct 30.7 % (42.0-52.0) L 10/08/20 03:35 MCV 88.1 fL (78.0-98.0) 10/08/20 03:35 Plt Count 537 thou/uL (130-400) H 10/08/20 03:35 Band Neuts % (Manual) 11 % (5-11) 10/08/20 03:35 ABG pH 7.08 (7.35-7.45) L* 10/06/20 11:15 ABG pCO2 38.3 mmHg (35.0-45.0) 10/06/20 11:15 ABG pO2 64.9 mmHg (80.0-100.0) L 10/06/20 11:15 Sodium 139 mmol/L (136-145) 10/08/20 03:35 Potassium 4.5 mmol/L (3.5-5.1) 10/08/20 03:35 Chloride 105 mmol/L (98-107) 10/08/20 03:35 Carbon Dioxide 23 mmol/L (22-29) 10/08/20 03:35 BUN 57 mg/dL (8.9-20.6) H 10/08/20 03:35 Creatinine 3.09 mg/dL (0.7-1.3) H 10/08/20 03:35 Glucose 344 mg/dL (70-105) H 10/08/20 03:35 Lactic Acid 0.8 mmol/L (0.5-2.2) 10/06/20 07:48 Calcium 8.4 mg/dL (7.8-10.44) 10/08/20 03:35 Total Bilirubin 0.3 mg/dL (0.2-1.2) 10/06/20 07:48 AST 21 U/L (5-34) 10/06/20 07:48 ALT 13 U/L (8-55) 10/06/20 07:48 Alkaline Phosphatase 72 U/L (40-110) 10/06/20 07:48 CK-MB (CK-2) 5.0 ng/mL (0-6.6) 10/06/20 07:48 Troponin I 0.027 ng/mL (< 0.028) 10/06/20 13:31 Serum Total Protein 7.7 g/dL (6.0-8.3) 10/06/20 07:48 Albumin 3.7 g/dL (3.5-5.0) 10/06/20 07:48 Urine Ketones Negative mg/dL (Negative) 10/06/20 20:20 Urine Blood 1+ (Negative) A 10/06/20 20:20 Urine Nitrite Negative (Negative) 10/06/20 20:20 Ur Leukocyte Esterase Negative Barbra/uL (Negative) 10/06/20 20:20 Urine RBC 4-6 HPF (0-3) A 10/06/20 20:20 Urine WBC 0-3 HPF (0-3) 10/06/20 20:20 Ur Squamous Epith Cells 0-3 HPF (0-3) 10/06/20 20:20 Urine Bacteria 1+ HPF (None Seen) A 10/06/20 20:20 Sodium 139 mmol/L (136-145) 10/08/20 03:35 Potassium 4.5 mmol/L (3.5-5.1) 10/08/20 03:35 Chloride 105 mmol/L (98-107) 10/08/20 03:35 Carbon Dioxide 23 mmol/L (22-29) 10/08/20 03:35 Anion Gap 16 mmol/L (10-20) 10/08/20 03:35 BUN 57 mg/dL (8.9-20.6) H 10/08/20 03:35 Creatinine 3.09 mg/dL (0.7-1.3) H 10/08/20 03:35 Glucose 344 mg/dL (70-105) H 10/08/20 03:35 Calcium 8.4 mg/dL (7.8-10.44) 10/08/20 03:35 Magnesium 2.0 mg/dL (1.6-2.6) 10/06/20 07:48 Albumin 3.7 g/dL (3.5-5.0) 10/06/20 07:48 Nephrology AP PN - Plan ASSESSMENT: Acute renal failure: Due to hemodynamic factors related to volume depletion from poor intake and increased losses related to diuretic and diarrhea as well as effect of RAAS karina and cytokine mediated injury related to sepsis and coronavirus pneumonia. Creat is trending down. Hyperkalemia: Due to acute kidney injury as well as use of lisinopril and potassium supplementation as well as marked metabolic acidosis. Resolved. Severe metabolic acidosis: Due to acute renal failure and diarrhea. Improving Sepsis due to coronavirus disease infection. Morbid obesity. Obstructive sleep apnea, on CPAP. Hypertension: Control is acceptable PLAN Continue sodium bicarbonate infusion. Monitor intake and output as well as electrolytes and renal function. Avoid nephrotoxic agents Can be moved out of IMCU from nephrology point of view. Increase activity.
[2020-10-08] MEDS: Dexamethasone 4 mg/ml Vial SLOW IVP SCH (16:25)
--- NOTE | 2020-10-08 17:23 | PDOC.HOSPP ---
- Subjective Encounter Date: 10/08/20 Encounter Time: 12:00 Subjective: Patient seen for follow-up regarding acute renal failure. He reports feeling better. - Objective Vital Signs & Weight: Vital Signs (12 hours) Temp Pulse Ox 10/08/20 16:00 97.0 F L 10/08/20 12:00 97.1 F L 10/08/20 08:00 96.0 F L 94 L Weight Weight 360 lb Most Recent Monitor Data Heart Rate from ECG 63 NIBP 152/94 NIBP BP-Mean 113 Respiration from ECG 16 SpO2 89 I&O: 10/07/20 10/08/20 10/09/20 06:59 06:59 06:59 Intake Total 500 4175 Output Total 1200 4850 Balance -700 -675 Result Diagrams: 10/08/20 03:35 10/08/20 03:35 Additional Labs: Accuchecks 10/08/20 10/08/20 10/08/20 16:38 10:46 05:34 POC Glucose 267 H 289 H 302 H Labs and MAR reviewed by ms Hospitalist ROS - Review of Systems Constitutional: reports: weakness Respiratory: denies: cough, dry, shortness of breath, hemoptysis, SOB with excertion, pleuritic pain, sputum, wheezing Gastrointestinal: denies: nausea, vomiting, abdominal pain, diarrhea, constipation, melena, hematochezia - Medication Medications: Active Medications Generic Name Dose Route Start Last Admin Trade Name Freq PRN Reason Stop Dose Admin Ascorbic Acid 1,000 mg 10/07/20 09:00 10/08/20 07:49 Ascorbic Acid 500 Mg Chewable Tablet PO 1,000 mg DAILY JERRY Administration Dexamethasone 6 mg 10/06/20 15:00 10/08/20 16:25 Dexamethasone 4 Mg/Ml Vial SLOW IVP 6 mg Q24HR JERRY Administration Heparin Sodium (Porcine) 5,000 units 10/06/20 15:00 10/08/20 16:25 Heparin 5,000 Units/Ml Vial SC 5,000 units TID JERRY Administration Ceftriaxone Sodium 1 gm/ 100 mls @ 200 mls/hr 10/07/20 09:00 10/08/20 07:50 Sodium Chloride IVPB 100 mls 0900 JERRY Administration Azithromycin 500 mg/ Sodium 250 mls @ 250 mls/hr 10/07/20 10:00 10/08/20 09:16 Chloride IVPB 250 mls 1000 JERRY Administration Sodium Bicarbonate 150 meq/ 1,150 mls @ 125 mls/hr 10/07/20 10:35 10/08/20 09:15 Dextrose/Water IV 1,150 mls INF JERRY Administration Insulin Human Lispro 0 units 10/06/20 14:13 10/08/20 16:27 Humalog 300 Units/3 Ml Vial SC 4 unit .MILD SLIDING SCALE PRN Administration Mild Correctional Scale Zinc Sulfate 220 mg 10/07/20 09:00 10/08/20 07:50 Zinc Sulfate 220 Mg Cap PO 220 mg DAILY JERYR Administration - Exam General Appearance: awake alert General - other findings: Morbid obesity Eye: anicteric sclera ENT: normocephalic atraumatic Neck: no thyromegaly Heart: RRR Respiratory: CTAB Gastrointestinal: soft, non-tender Musculoskeletal: no muscle wasting Psychiatric: normal affect, normal behavior Hosp A/P (1) Acute kidney injury Code(s): N17.9 - ACUTE KIDNEY FAILURE, UNSPECIFIED Status: Acute (2) Metabolic acidosis Code(s): E87.2 - ACIDOSIS Status: Acute (3) Hypotension Status: Acute (4) Diabetes mellitus, type II Status: Chronic (5) Hyperkalemia Code(s): E87.5 - HYPERKALEMIA Status: Resolved - Plan - Plan SHANNAN has improved. Continue ceftriaxone and azithromycin. Continue dexamethasone. Vitamin C, vitamin D and zinc. Patient did not need dialysis at this time. Transfer to medical floor.
[2020-10-09] MEDS: Sodium Bicarbonate 150 MEQ in Dextrose 5% in Water 1,000 ML IV SCH (01:14)
[2020-10-09 06:17] LABS: Hemoglobin 10.1 g/dL (14.0-18.0); Mean Corpuscular HGB CONC 31.9 g/dL (32.0-36.0); Mean Corpuscular Hemoglobin 28.8 pg (27.0-31.0); Mean Corpuscular Volume 90.1 fL (78.0-98.0); Mean Platelet Volume 7.9 fL (7.4-10.4); Platelet Count 287 thou/uL (130-400); RBC Distribution Width 14.5 % (11.5-14.5); Red Blood Cell (RBC) Count 3.51 mill/uL (4.70-6.10); White Blood Cell (WBC) Count 11.7 thou/uL (4.8-10.8)
[2020-10-09 06:18] LABS: Band 10 % (5-11); Lymphocytes 22 % (21-51); MDiff Complete? YES; Monocytes 4 % (0-10); Neutrophil 64 % (42-75); Nucleated RBC 1 % (0); Platelet Morphology Comment Appears Adequate
[2020-10-09] MEDS: HumaLOG 300 UNITS/3 ML VIAL SC PRN ×4 (06:30→21:14)
[2020-10-09 06:56] LABS: Anion Gap 17 mmol/L (10-20); BUN (Urea Nitrogen) 39 mg/dL (8.9-20.6); Calc. Creatinine Clearance 157 mL/min (70-130); Calcium 8.5 mg/dL (7.8-10.44); Carbon Dioxide 24 mmol/L (22-29); Chloride 103 mmol/L (98-107); Glucose 403 mg/dL (70-105); Potassium 4.7 mmol/L (3.5-5.1); Sodium 139 mmol/L (136-145)
[2020-10-09] MEDS: Zinc Sulfate 220 MG CAP PO SCH (08:46)
[2020-10-09] MEDS: Ascorbic Acid 500 mg Chewable Tablet PO SCH (08:46)
[2020-10-09] MEDS: Heparin 5,000 UNITS/ML VIAL SC SCH ×3 (08:47→20:58)
[2020-10-09] MEDS: cefTRIAXone\\ROCEPHIN 1 GM in Sodium Chloride 0.9% 100 ML IVPB SCH (08:47)
[2020-10-09] MEDS: Azithromycin 500 MG in Sodium Chloride 0.9% 250 ML 250 ML IVPB SCH (10:28)
--- NOTE | 2020-10-09 13:04 | PDOC.NEPPN ---
- Subjective Encounter Date: 10/09/20 Subjective: No new problem. Denied nausea or vomiting. Feeling a lot better. - Objective Vital Signs & Weight: Vital Signs (12 hours) Temp Pulse Resp BP Pulse Ox 10/09/20 10:50 98.0 F 64 22 H 137/67 92 L 10/09/20 07:21 92 L 10/09/20 07:18 98.4 F 10/09/20 04:00 97.6 F Weight Admit Weight 360 lb Weight 360 lb Most Recent Monitor Data Heart Rate from ECG 56 NIBP 138/69 NIBP BP-Mean 92 Respiration from ECG 15 SpO2 88 I&O: 10/08/20 10/09/20 10/10/20 06:59 06:59 06:59 Intake Total 4175 5760 Output Total 4850 2300 Balance -675 3460 Result Diagrams: 10/09/20 05:25 10/09/20 06:13 Additional Labs: Accuchecks 10/09/20 10/09/20 10/08/20 10:46 06:38 20:30 POC Glucose 310 H 366 H 366 H 10/08/20 16:38 POC Glucose 267 H Nephrology ROS - Medication Medications: Active Medications Generic Name Dose Route Start Last Admin Trade Name Freq PRN Reason Stop Dose Admin Ascorbic Acid 1,000 mg 10/07/20 09:00 10/09/20 08:46 Ascorbic Acid 500 Mg Chewable Tablet PO 1,000 mg DAILY JERRY Administration Dexamethasone 6 mg 10/06/20 15:00 10/08/20 16:25 Dexamethasone 4 Mg/Ml Vial SLOW IVP 6 mg Q24HR JERRY Administration Heparin Sodium (Porcine) 5,000 units 10/06/20 15:00 10/09/20 08:47 Heparin 5,000 Units/Ml Vial SC 5,000 units TID JERRY Administration Ceftriaxone Sodium 1 gm/ 100 mls @ 200 mls/hr 10/07/20 09:00 10/09/20 08:47 Sodium Chloride IVPB 100 mls 0900 JERRY Administration Azithromycin 500 mg/ Sodium 250 mls @ 250 mls/hr 10/07/20 10:00 10/09/20 10:28 Chloride IVPB 250 mls 1000 JERRY Administration Insulin Human Lispro 0 units 10/06/20 14:13 10/09/20 11:36 Humalog 300 Units/3 Ml Vial SC 5 unit .MILD SLIDING SCALE PRN Administration Mild Correctional Scale Zinc Sulfate 220 mg 10/07/20 09:00 10/09/20 08:46 Zinc Sulfate 220 Mg Cap PO 220 mg DAILY JERRY Administration - Exam General Appearance: awake alert Eye: anicteric sclera ENT: normocephalic atraumatic, moist mucosa Neck: supple, no JVD Respiratory - other findings: fair air entry bilaterally Cardiovascular: RRR Gastrointestinal: non-tender, non-distended, normal bowel sounds Gastrointestinal - other findings: morbidly obese Extremities: no cyanosis Extremities - other findings: Right leg chronic lymphedematous changes noted Neurological: CN's grossly intact, no focal deficits PSYCH: A&O x 3 Nephrology Results - Labs Result Diagrams: 10/09/20 05:25 10/09/20 06:13 Lab results: WBC 11.7 thou/uL (4.8-10.8) H 10/09/20 05:25 Hgb 10.1 g/dL (14.0-18.0) L 10/09/20 05:25 Hct 31.7 % (42.0-52.0) L 10/09/20 05:25 MCV 90.1 fL (78.0-98.0) 10/09/20 05:25 Plt Count 287 thou/uL (130-400) 10/09/20 05:25 Band Neuts % (Manual) 10 % (5-11) 10/09/20 05:25 ABG pH 7.08 (7.35-7.45) L* 10/06/20 11:15 ABG pCO2 38.3 mmHg (35.0-45.0) 10/06/20 11:15 ABG pO2 64.9 mmHg (80.0-100.0) L 10/06/20 11:15 Sodium 139 mmol/L (136-145) 10/09/20 06:13 Potassium 4.7 mmol/L (3.5-5.1) 10/09/20 06:13 Chloride 103 mmol/L (98-107) 10/09/20 06:13 Carbon Dioxide 24 mmol/L (22-29) 10/09/20 06:13 BUN 39 mg/dL (8.9-20.6) H 10/09/20 06:13 Creatinine 1.47 mg/dL (0.7-1.3) H 10/09/20 06:13 Glucose 403 mg/dL (70-105) H 10/09/20 06:13 Lactic Acid 0.8 mmol/L (0.5-2.2) 10/06/20 07:48 Calcium 8.5 mg/dL (7.8-10.44) 10/09/20 06:13 Total Bilirubin 0.3 mg/dL (0.2-1.2) 10/06/20 07:48 AST 21 U/L (5-34) 10/06/20 07:48 ALT 13 U/L (8-55) 10/06/20 07:48 Alkaline Phosphatase 72 U/L (40-110) 10/06/20 07:48 CK-MB (CK-2) 5.0 ng/mL (0-6.6) 10/06/20 07:48 Troponin I 0.027 ng/mL (< 0.028) 10/06/20 13:31 Serum Total Protein 7.7 g/dL (6.0-8.3) 10/06/20 07:48 Albumin 3.7 g/dL (3.5-5.0) 10/06/20 07:48 Urine Ketones Negative mg/dL (Negative) 10/06/20 20:20 Urine Blood 1+ (Negative) A 10/06/20 20:20 Urine Nitrite Negative (Negative) 10/06/20 20:20 Ur Leukocyte Esterase Negative Barbra/uL (Negative) 10/06/20 20:20 Urine RBC 4-6 HPF (0-3) A 10/06/20 20:20 Urine WBC 0-3 HPF (0-3) 10/06/20 20:20 Ur Squamous Epith Cells 0-3 HPF (0-3) 10/06/20 20:20 Urine Bacteria 1+ HPF (None Seen) A 10/06/20 20:20 Sodium 139 mmol/L (136-145) 10/09/20 06:13 Potassium 4.7 mmol/L (3.5-5.1) 10/09/20 06:13 Chloride 103 mmol/L (98-107) 10/09/20 06:13 Carbon Dioxide 24 mmol/L (22-29) 10/09/20 06:13 Anion Gap 17 mmol/L (10-20) 10/09/20 06:13 BUN 39 mg/dL (8.9-20.6) H 10/09/20 06:13 Creatinine 1.47 mg/dL (0.7-1.3) H 10/09/20 06:13 Glucose 403 mg/dL (70-105) H 10/09/20 06:13 Calcium 8.5 mg/dL (7.8-10.44) 10/09/20 06:13 Magnesium 2.0 mg/dL (1.6-2.6) 10/06/20 07:48 Albumin 3.7 g/dL (3.5-5.0) 10/06/20 07:48 Nephrology AP PN - Plan ASSESSMENT: Acute renal failure: Due to hemodynamic factors related to volume depletion from poor intake and increased losses related to diuretic and diarrhea as well as effect of RAAS karina and cytokine mediated injury related to sepsis and coronavirus pneumonia. Creat continue to trending down. Hyperkalemia: Due to acute kidney injury as well as use of lisinopril and potassium supplementation as well as marked metabolic acidosis. Resolved. Severe metabolic acidosis: Due to acute renal failure and diarrhea. Improving Sepsis due to coronavirus disease infection. Morbid obesity. Obstructive sleep apnea, on CPAP. Hypertension: Control is acceptable Bradycardia: Sinus. Mostly at nights. Related to JAYA. PLAN DC IV fluid. Start oral sodium bicarb. [place] oral intake. Monitor intake and output as well as electrolytes and renal function. Recommencement of BIPAP at nights recommended Avoid nephrotoxic agents. Can DC trialysis catheter if reliable peripheral IV assess is obtained.
--- NOTE | 2020-10-09 13:23 | PRG ---
DATE OF SERVICE: 10/09/2020 SUBJECTIVE: Shaan Khan apparently was bradycardic with apneic events last night. He does not have a CPAP up here. He is unclear what his pressure settings are. We could probably use an auto PAP device on him when he is sleeping with O2 titrated into the sat 88 to 92. The order will be placed. There are no other clinical changes from an exam standpoint. His hemoglobin is stable around 10 g. His renal function is improved to a creatinine of 1.4. Job ID: [id number]
[2020-10-09] MEDS: Dexamethasone 4 mg/ml Vial SLOW IVP SCH (14:37)
--- NOTE | 2020-10-09 18:30 | PDOC.HOSPP ---
- Subjective Encounter Date: 10/09/20 Encounter Time: 12:00 Subjective: Patient seen for follow-up regarding acute kidney injury. He reports feeling much better compared to since admission. - Objective Vital Signs & Weight: Vital Signs (12 hours) Temp Pulse Resp BP Pulse Ox 10/09/20 15:34 98.1 F 50 L 24 H 161/86 H 93 L 10/09/20 10:50 98.0 F 64 22 H 137/67 92 L 10/09/20 07:21 92 L 10/09/20 07:18 98.4 F Weight Admit Weight 360 lb Weight 360 lb Most Recent Monitor Data Heart Rate from ECG 56 NIBP 138/69 NIBP BP-Mean 92 Respiration from ECG 15 SpO2 88 I&O: 10/08/20 10/09/20 10/10/20 06:59 06:59 06:59 Intake Total 4175 5760 640 Output Total 4850 2300 600 Balance -675 3460 40 Result Diagrams: 10/09/20 05:25 10/09/20 06:13 Additional Labs: Accuchecks 10/09/20 10/09/20 10/09/20 16:06 10:46 06:38 POC Glucose 319 H 310 H 366 H 10/08/20 20:30 POC Glucose 366 H Labs and MAR reviewed by me Hospitalist ROS - Review of Systems Cardiovascular: denies: chest pain, palpitations, orthopnea, paroxysmal noc. dyspnea, edema, light headedness Gastrointestinal: denies: nausea, vomiting, abdominal pain, diarrhea, constipation, melena, hematochezia - Medication Medications: Active Medications Generic Name Dose Route Start Last Admin Trade Name Kamila PRN Reason Stop Dose Admin Ascorbic Acid 1,000 mg 10/07/20 09:00 10/09/20 08:46 Ascorbic Acid 500 Mg Chewable Tablet PO 1,000 mg DAILY JERRY Administration Dexamethasone 6 mg 10/06/20 15:00 10/09/20 14:37 Dexamethasone 4 Mg/Ml Vial SLOW IVP 6 mg Q24HR JERRY Administration Heparin Sodium (Porcine) 5,000 units 10/06/20 15:00 10/09/20 14:37 Heparin 5,000 Units/Ml Vial SC 5,000 units TID JERRY Administration Ceftriaxone Sodium 1 gm/ 100 mls @ 200 mls/hr 10/07/20 09:00 10/09/20 08:47 Sodium Chloride IVPB 100 mls 0900 JERRY Administration Azithromycin 500 mg/ Sodium 250 mls @ 250 mls/hr 10/07/20 10:00 10/09/20 10:28 Chloride IVPB 250 mls 1000 JERRY Administration Insulin Human Lispro 0 units 10/06/20 14:13 10/09/20 16:23 Humalog 300 Units/3 Ml Vial SC 5 unit .MILD SLIDING SCALE PRN Administration Mild Correctional Scale Zinc Sulfate 220 mg 10/07/20 09:00 10/09/20 08:46 Zinc Sulfate 220 Mg Cap PO 220 mg DAILY JERRY Administration - Exam General - other findings: Morbid obesity Eye: anicteric sclera Heart: RRR Respiratory: CTAB Gastrointestinal: soft, non-tender Skin: no rashes Psychiatric: normal affect, normal behavior Hosp A/P (1) Acute kidney injury Code(s): N17.9 - ACUTE KIDNEY FAILURE, UNSPECIFIED Status: Acute (2) Diabetes mellitus, type II Status: Chronic (3) Hyperkalemia Code(s): E87.5 - HYPERKALEMIA Status: Resolved (4) Metabolic acidosis Code(s): E87.2 - ACIDOSIS Status: Resolved (5) Hypotension Status: Resolved - Plan - Plan Creatinine has improved to 1.47. Discontinue ceftriaxone and azithromycin, start cefdinir. Continue dexamethasone. Continue Vitamin C, vitamin D and zinc. Likely home 24 to 48 hours.
[2020-10-09] MEDS: Cefdinir 300 MG CAP PO SCH (20:57)
[2020-10-09] MEDS: Sodium Bicarbonate Tab 325 MG TAB PO SCH (20:57)
[2020-10-10] MEDS: HumaLOG 300 UNITS/3 ML VIAL SC PRN ×2 (06:06→11:03)
[2020-10-10 06:50] LABS: Band 5 % (5-11); Hemoglobin 10.3 g/dL (14.0-18.0); Hypochromia SLIGHT = 6-15 cells (100X) (0-5/hpf); Lymphocytes 22 % (21-51); MDiff Complete? YES; Mean Corpuscular HGB CONC 30.9 g/dL (32.0-36.0); Mean Corpuscular Hemoglobin 27.6 pg (27.0-31.0); Mean Corpuscular Volume 89.3 fL (78.0-98.0); Mean Platelet Volume 7.6 fL (7.4-10.4); Monocytes 9 % (0-10); Neutrophil 64 % (42-75); Platelet Count 551 thou/uL (130-400); Platelet Morphology Comment Appears Increased; RBC Distribution Width 14.5 % (11.5-14.5); Red Blood Cell (RBC) Count 3.72 mill/uL (4.70-6.10); White Blood Cell (WBC) Count 14.6 thou/uL (4.8-10.8)
[2020-10-10 06:51] LABS: Albumin 3.4 g/dL (3.5-5.0); Anion Gap 14 mmol/L (10-20); BUN (Urea Nitrogen) 36 mg/dL (8.9-20.6); BUN/Creatinine Ratio 26.47; Calc. Creatinine Clearance 195 mL/min (70-130); Calcium 8.8 mg/dL (7.8-10.44); Carbon Dioxide 30 mmol/L (22-29); Chloride 101 mmol/L (98-107); Glucose 352 mg/dL (70-105); Phosphorus 2.6 mg/dL (2.3-4.7); Potassium 4.4 mmol/L (3.5-5.1); Sodium 141 mmol/L (136-145)
[2020-10-10] MEDS: Sodium Bicarbonate Tab 325 MG TAB PO SCH (07:49)
[2020-10-10] MEDS: Cefdinir 300 MG CAP PO SCH (07:49)
[2020-10-10] MEDS: Zinc Sulfate 220 MG CAP PO SCH (07:49)
[2020-10-10] MEDS: Ascorbic Acid 500 mg Chewable Tablet PO SCH (07:49)
[2020-10-10] MEDS: Heparin 5,000 UNITS/ML VIAL SC SCH (07:50)
--- NOTE | 2020-10-10 09:55 | PDOC.NEPPN ---
- Subjective Encounter Date: 10/10/20 Subjective: Seen. No new problem. Still on oxygen. Oral intake is great. - Objective Vital Signs & Weight: Vital Signs (12 hours) Temp Pulse Resp BP Pulse Ox 10/10/20 08:03 98 F 41 L 19 146/68 H 93 L 10/10/20 04:45 97.6 F 47 L 16 148/70 H 90 L 10/10/20 03:12 17 97 10/09/20 23:09 98.3 F 36 L 21 H 162/70 H 99 10/09/20 21:58 21 H 92 L Weight Admit Weight 360 lb Weight 411 lb 14.4 oz Most Recent Monitor Data Heart Rate from ECG 56 NIBP 138/69 NIBP BP-Mean 92 Respiration from ECG 15 SpO2 88 I&O: 10/09/20 10/10/20 10/11/20 06:59 06:59 06:59 Intake Total 5760 1290 Output Total 2300 1400 Balance 3460 -110 Result Diagrams: 10/10/20 06:12 10/10/20 06:12 Additional Labs: Accuchecks 10/10/20 10/09/20 10/09/20 06:08 21:03 16:06 POC Glucose 319 H 371 H 319 H 10/09/20 10:46 POC Glucose 310 H Nephrology ROS - Medication Medications: Active Medications Generic Name Dose Route Start Last Admin Trade Name Freq PRN Reason Stop Dose Admin Ascorbic Acid 1,000 mg 10/07/20 09:00 10/10/20 07:49 Ascorbic Acid 500 Mg Chewable Tablet PO 1,000 mg DAILY JERRY Administration Cefdinir 300 mg 10/09/20 21:00 10/10/20 07:49 Cefdinir 300 Mg Cap PO 300 mg BID JERRY Administration Dexamethasone 6 mg 10/06/20 15:00 10/09/20 14:37 Dexamethasone 4 Mg/Ml Vial SLOW IVP 6 mg Q24HR JERRY Administration Heparin Sodium (Porcine) 5,000 units 10/06/20 15:00 10/10/20 07:50 Heparin 5,000 Units/Ml Vial SC 5,000 units TID JERRY Administration Heparin Sodium (Porcine) 500 units 10/10/20 09:00 10/10/20 04:40 Heparin 500 Units/5 Ml Flush Syringe IVF 500 units DAILY JERRY Administration Insulin Human Lispro 0 units 10/06/20 14:13 10/10/20 06:06 Humalog 300 Units/3 Ml Vial SC 5 unit .MILD SLIDING SCALE PRN Administration Mild Correctional Scale Zinc Sulfate 220 mg 10/07/20 09:00 10/10/20 07:49 Zinc Sulfate 220 Mg Cap PO 220 mg DAILY JERRY Administration - Exam General Appearance: awake alert General - other findings: morbidly obese Eye: anicteric sclera ENT: normocephalic atraumatic, moist mucosa Respiratory: no wheezes, no ronchi, normal chest expansion, no tachypnea Respiratory - other findings: Fair air entry bilaterally Cardiovascular: RRR Gastrointestinal: soft, non-tender, normal bowel sounds Extremities - other findings: trace to mild right leg edema right leg chronic venous stass changes noted Neurological: CN's grossly intact, no focal deficits PSYCH: normal affect Nephrology Results - Labs Result Diagrams: 10/10/20 06:12 10/10/20 06:12 Lab results: WBC 14.6 thou/uL (4.8-10.8) H 10/10/20 06:12 Hgb 10.3 g/dL (14.0-18.0) L 10/10/20 06:12 Hct 33.2 % (42.0-52.0) L 10/10/20 06:12 MCV 89.3 fL (78.0-98.0) 10/10/20 06:12 Plt Count 551 thou/uL (130-400) H 10/10/20 06:12 Band Neuts % (Manual) 5 % (5-11) 10/10/20 06:12 ABG pH 7.08 (7.35-7.45) L* 10/06/20 11:15 ABG pCO2 38.3 mmHg (35.0-45.0) 10/06/20 11:15 ABG pO2 64.9 mmHg (80.0-100.0) L 10/06/20 11:15 Sodium 141 mmol/L (136-145) 10/10/20 06:12 Potassium 4.4 mmol/L (3.5-5.1) 10/10/20 06:12 Chloride 101 mmol/L (98-107) 10/10/20 06:12 Carbon Dioxide 30 mmol/L (22-29) H 10/10/20 06:12 BUN 36 mg/dL (8.9-20.6) H 10/10/20 06:12 Creatinine 1.36 mg/dL (0.7-1.3) H 10/10/20 06:12 Glucose 352 mg/dL (70-105) H 10/10/20 06:12 Lactic Acid 0.8 mmol/L (0.5-2.2) 10/06/20 07:48 Calcium 8.8 mg/dL (7.8-10.44) 10/10/20 06:12 Total Bilirubin 0.3 mg/dL (0.2-1.2) 10/06/20 07:48 AST 21 U/L (5-34) 10/06/20 07:48 ALT 13 U/L (8-55) 10/06/20 07:48 Alkaline Phosphatase 72 U/L (40-110) 10/06/20 07:48 CK-MB (CK-2) 5.0 ng/mL (0-6.6) 10/06/20 07:48 Troponin I 0.027 ng/mL (< 0.028) 10/06/20 13:31 Serum Total Protein 7.7 g/dL (6.0-8.3) 10/06/20 07:48 Albumin 3.4 g/dL (3.5-5.0) L 10/10/20 06:12 Urine Ketones Negative mg/dL (Negative) 10/06/20 20:20 Urine Blood 1+ (Negative) A 10/06/20 20:20 Urine Nitrite Negative (Negative) 10/06/20 20:20 Ur Leukocyte Esterase Negative Barbra/uL (Negative) 10/06/20 20:20 Urine RBC 4-6 HPF (0-3) A 10/06/20 20:20 Urine WBC 0-3 HPF (0-3) 10/06/20 20:20 Ur Squamous Epith Cells 0-3 HPF (0-3) 10/06/20 20:20 Urine Bacteria 1+ HPF (None Seen) A 10/06/20 20:20 Sodium 141 mmol/L (136-145) 10/10/20 06:12 Potassium 4.4 mmol/L (3.5-5.1) 10/10/20 06:12 Chloride 101 mmol/L (98-107) 10/10/20 06:12 Carbon Dioxide 30 mmol/L (22-29) H 10/10/20 06:12 Anion Gap 14 mmol/L (10-20) 10/10/20 06:12 BUN 36 mg/dL (8.9-20.6) H 10/10/20 06:12 Creatinine 1.36 mg/dL (0.7-1.3) H 10/10/20 06:12 Glucose 352 mg/dL (70-105) H 10/10/20 06:12 Calcium 8.8 mg/dL (7.8-10.44) 10/10/20 06:12 Phosphorus 2.6 mg/dL (2.3-4.7) 10/10/20 06:12 Magnesium 2.0 mg/dL (1.6-2.6) 10/06/20 07:48 Albumin 3.4 g/dL (3.5-5.0) L 10/10/20 06:12 Nephrology AP PN - Plan ASSESSMENT: Acute renal failure: Due to hemodynamic factors related to volume depletion from poor intake and increased losses related to diuretic and diarrhea as well as effect of RAAS karina and cytokine mediated injury related to sepsis and coronavirus pneumonia. Creat continue to trending down even with discontinuation ofIVF. Hyperkalemia: Due to acute kidney injury as well as use of lisinopril and potassium supplementation as well as marked metabolic acidosis. Resolved. Severe metabolic acidosis: Due to acute renal failure and diarrhea. Improving Sepsis due to coronavirus disease infection. Morbid obesity. Obstructive sleep apnea, on CPAP. Hypertension: Control is acceptable Bradycardia: Sinus. Mostly at nights. Related to JAYA. PLAN Addison oral intake. Avoid nephrotoxic agents. Can be discharged from nephrology. Follow up with PCP and local nephtrologist. Patient advised to call for appointment if he cannot get get a local burial vault setter to see him promptly
--- NOTE | 2020-10-10 11:15 | PDOC.DS.DS ---
Provider - Provider Date of Admission: 10/06/20 08:22 Date of Discharge: 10/10/20 Admitting Provider: Shakir Wellington MD Consultations: General Surgery (Dr. Marquez), Nephrology (Dr. Szymanski), Pulmonary (Dr. Montoya) Primary Care Physician: Dr. Varghese Rivas Course - Hospital Course Hospital Course: Discharge diagnosis: 1. Acute renal failure 2. Metabolic acidosis 3. COVID-19 infection 4. Hypotension 5. Hyperkalemia 6. Multifocal pneumonia Hospital course: Patient is a pleasant 40-year-old gentleman who was admitted to the hospital on October 06, 2020 for acute kidney injury, metabolic acidosis, COVID-19 infe ction and multifocal pneumonia as well as hyperkalemia. He was seen by nephrology service, general surgery service and pulmonary and critical care medicine services. He had a dialysis catheter placed. However, he improved clinically and biochemically and did not need dialysis. His lisinopril and Metformin are on hold. He has been advised to check his blood sugars, blood pressure and heart rate 3 times a day and shows readings to his primary care provider. He has been advised to continue to use his BiPAP and home oxygen. Many thanks for allowing me to participate in your patient's care. Please feel free to contact me with any questions or concerns. Discharge destination: Home Total amount of time spent coordinating this discharge: 32 minutes - Labs Lab Results: 10/10/20 06:12 10/10/20 06:12 Abnormal Lab Results - Last 48 hrs 10/09/20 05:25: WBC 11.7 H, RBC 3.51 L, Hgb 10.1 L, Hct 31.7 L, MCHC 31.9 L, Nucleated RBCs # (Man) 1 H 10/09/20 06:13: BUN 39 H, Creatinine 1.47 H 10/10/20 06:12: WBC 14.6 H, RBC 3.72 L, Hgb 10.3 L, Hct 33.2 L, MCHC 30.9 L, Plt Count 551 H, Plt Morphology Comment Appears Increased H 10/10/20 06:12: Carbon Dioxide 30 H, BUN 36 H, Creatinine 1.36 H, Albumin 3.4 L Microbiology - Entire Visit 10/06/20 20:15 Stool Stool Culture - Final 10/06/20 20:15 Stool Escherichia coli 0157 Culture - Final 10/06/20 21:04 Urine voided Urine Culture - Final NO GROWTH AT 36 HOURS 10/06/20 14:09 Central Line - Left Common Femoral vein Blood Culture - Preliminary NO GROWTH AT 48 HOURS 10/06/20 14:09 Central Line - Left Common Femoral vein Blood Culture - Pre liminary NO GROWTH AT 48 HOURS 10/06/20 20:15 Stool Campylobacter Antigen Assay - Final 10/06/20 20:15 Stool Shiga Toxin Test - Final 10/06/20 20:15 Stool C. difficile GDH Antigen & Toxins - Final - Physical Exam Vitals: Vital Signs (12 hours) Temp Pulse Resp BP Pulse Ox 10/10/20 08:03 98 F 41 L 19 146/68 H 93 L 10/10/20 04:45 97.6 F 47 L 16 148/70 H 90 L 10/10/20 03:12 17 97 Weight Admit Weight 360 lb Weight 411 lb 14.4 oz Most Recent Monitor Data Heart Rate from ECG 56 NIBP 138/69 NIBP BP-Mean 92 Respiration from ECG 15 SpO2 88 Physical Exam: The patient was seen and examined on the day of discharge. Patient denies chest pain or shortness of breath. Vital signs are stable. S1 and S2 are heard. Lungs are clear to auscultation bilaterally. Problem - Problem (1) Acute kidney injury Code(s): N17.9 - ACUTE KIDNEY FAILURE, UNSPECIFIED Status: Acute (2) Diabetes mellitus, type II Status: Chronic (3) Hyperkalemia Code(s): E87.5 - HYPERKALEMIA Status: Resolved (4) Metabolic acidosis Code(s): E87.2 - ACIDOSIS Status: Resolved (5) Hypotension Status: Resolved Plan - Discharge Medications Prescriptions: Dexamethasone 6 mg PO DAILY #5 tablet Furosemide [Lasix] 40 mg PO DAILY-AC #30 tab Ascorbic Acid [Vitamin C] 1,000 mg PO DAILY #5 tablet Zinc Sulfate [Zinc-220] 220 mg PO DAILY #5 capsule Home Medications: Medication Instructions Recorded Confirmed Type Amlodipine [Norvasc] 5 mg PO DAILY 10/07/20 10/07/20 History Aspirin [Ecotrin] 81 mg PO DAILY 10/07/20 10/07/20 History Atorvastatin Calcium [Lipitor] 40 mg PO DAILY 10/07/20 10/07/20 History Furosemide [Lasix] 40 mg PO BID 10/07/20 10/07/20 History Gabapentin 300 mg PO BID 10/07/20 10/07/20 History Gemfibrozil [Lopid] 600 mg PO BIDAC 10/07/20 10/07/20 History Lisinopril [Prinivil] 20 mg PO DAILY 10/07/20 10/07/20 History Potassium Chloride [Klor-Con M20] 20 meq PO DAILY 10/07/20 10/07/20 History glipiZIDE [Glipizide] 10 mg PO BID 10/07/20 10/07/20 History metFORMIN HCl [Metformin HCl] 1,000 mg PO BID 10/07/20 10/07/20 History Ascorbic Acid [Vitamin C] 1,000 mg PO DAILY #5 tablet 10/10/20 Rx Dexamethasone 6 mg PO DAILY #5 tablet 10/10/20 Rx Furosemide [Lasix] 40 mg PO DAILY-AC #30 tab 10/10/20 Rx Zinc Sulfate [Zinc-220] 220 mg PO DAILY #5 capsule 10/10/20 Rx Allergies: No Known Drug Allergies Allergy (Verified 10/07/20 00:26) - Discharge Instructions Discharge Instructions:: Check your blood sugar, blood pressure and heart rate 3 times a day and shows readings to primary care provider. Activity:: Activity as Tolerated Nourishment:: Diabetic Diet, Heart Healthy Diet, Low Sodium Diet - Follow up Plan Referrals: [facility],OUT OF [Primary Care Provider] - 3 Days Rick Szymanski MD [Active] - 10 Days Disposition: HOME Quality - Care Measures CORE MEASURES:: N/A
[2020-10-10 11:23] VITALS: BP 138/67; TEMP 98.3
== END 2020-10-10 15:14 | disposition home or self-care (01) | DRG 871 ==
LOC: ERS 06:50 → ERHOLD 08:22 → IMCU/EMU 18:46 → 2SW 10-09 10:35
PROVIDERS: ADMIT Internal Medicine; ATTEND Internal Medicine
PROC: 8E0ZXY6 Isolation (ICD-10-PCS; 2020-10-06)
PROC: 06HY33Z Insertion of Infusion Device into Lower Vein, Percutaneous Approach (ICD-10-PCS; 2020-10-06)
PROC: 5A09357 Assistance with Respiratory Ventilation, Less than 24 Consecutive Hours, Continuous Positive Airway Pressure (ICD-10-PCS; principal; 2020-10-09)
DX: A41.89 Other specified sepsis (principal); U07.1 COVID-19; J12.89 Other viral pneumonia; N17.9 Acute kidney failure, unspecified; E87.2 Acidosis; Z68.44 Body mass index [BMI] 60.0-69.9, adult; I12.9 Hypertensive chronic kidney disease with stage 1 through stage 4 chronic kidney disease, or unspecified chronic kidney disease; E87.5 Hyperkalemia; E66.01 Morbid (severe) obesity due to excess calories; E78.5 Hyperlipidemia, unspecified; E78.00 Pure hypercholesterolemia, unspecified; E88.81 Metabolic syndrome and other insulin resistance; E11.22 Type 2 diabetes mellitus with diabetic chronic kidney disease; N18.9 Chronic kidney disease, unspecified; G47.33 Obstructive sleep apnea (adult) (pediatric); I87.8 Other specified disorders of veins; E86.9 Volume depletion, unspecified; R19.7 Diarrhea, unspecified; Z90.49 Acquired absence of other specified parts of digestive tract; Z79.899 Other long term (current) drug therapy; Z79.84 Long term (current) use of oral hypoglycemic drugs; Z83.3 Family history of diabetes mellitus; Z82.49 Family history of ischemic heart disease and other diseases of the circulatory system; Z84.1 Family history of disorders of kidney and ureter
CPT/HCPCS: 36415; 36416; 36556; 36600; 76770; 80048; 80053; 80069; 81001; 82553; 82570; 82805; 83605; 83735; 84156; 84300; 84484; 84540; 85025; 87045; 87046; 87081; 87086; 87324; 87427; 87449; 87635; 93005; 94660; 96365; 96375; J0456; J0696; J1100; J1642; J1644; J1815; J2001; J3490; J7050; J7070; U0003